=== PATIENT | male | born 1945 | race Caucasian/White ===

== ENCOUNTER 2021-08-03 11:00 | Day surgery (SDC) | payer OTHER ==
[~2021-08-03] VITALS: Ht 175.3 cm; Wt 88.3 kg
[~2021-08-03 11:00] MED LIST: AZIT250 PO; HYDHOMSY PO; LISI20 PO; METF500C PO; METO25ER PO; SIMV80 PO; TRAM50 PO
[2021-08-03] MEDS ORDERED: ATOR40TA PO (11:46)
[2021-08-03] MEDS ORDERED: GABA300 PO (11:46)
[2021-08-03] MEDS ORDERED: ALLO100 PO (11:46)
[2021-08-03] MEDS ORDERED: JARDIANCE25 MG PO (11:47)
--- NOTE | 2021-08-03 11:55 | NUR ---
08/03/21 1155 Deuce Moran CALL MEENA WITHIN REACH. TETRACAINE AT 1146 AND PLEDGETT AT 1150 IN THE LEFT EYE
== END 2021-08-03 13:12 | disposition home or self-care (01) ==
LOC: ORSCSDS 11:00
PROVIDERS: Ophthalmology
PROC: 08RK3JZ Replacement of Left Lens with Synthetic Substitute, Percutaneous Approach (ICD-10-PCS; principal; 2021-08-03 12:30)
DX: H25.13 Age-related nuclear cataract, bilateral (principal); H21.81 Floppy iris syndrome; I10 Essential (primary) hypertension; I25.2 Old myocardial infarction; E11.9 Type 2 diabetes mellitus without complications; H52.209 Unspecified astigmatism, unspecified eye; H52.00 Hypermetropia, unspecified eye; Z79.82 Long term (current) use of aspirin; Z79.84 Long term (current) use of oral hypoglycemic drugs; Z79.899 Other long term (current) drug therapy
CPT/HCPCS: 82947; J2250; J3010; J3301; J7040; V2632

== ENCOUNTER 2021-08-24 11:05 | Day surgery (SDC) | payer OTHER ==
[~2021-08-24] VITALS: Ht 175.3 cm; Wt 85.9 kg
[~2021-08-24 11:05] MED LIST changes: +ALLO100 PO; +ATOR40TA PO; +GABA300 PO; +JARDIANCE25 MG PO
[2021-08-24] MEDS ORDERED: SODBIC650 (11:58)
[2021-08-24] MEDS ORDERED: TAMS.4ER PO (11:58)
[2021-08-24] MEDS ORDERED: METSALMENC (11:59)
[2021-08-24] MEDS ORDERED: Aspir 8181 MG PO (11:59)
[2021-08-24] MEDS ORDERED: PROSTIN VR500 MCG/3 IV (12:01)
[2021-08-24] MEDS ORDERED: ALEVAZOL56.7 G1 (12:02)
--- NOTE | 2021-08-24 12:06 | NUR ---
08/24/21 1206 LASHELL SMILEY AT 1158 PLEDGET AT 1200
== END 2021-08-24 13:23 | disposition home or self-care (01) ==
LOC: ORSCSDS 11:05
PROVIDERS: Ophthalmology
PROC: 08RJ3JZ Replacement of Right Lens with Synthetic Substitute, Percutaneous Approach (ICD-10-PCS; principal; 2021-08-24 12:30)
DX: H25.11 Age-related nuclear cataract, right eye (principal); H21.81 Floppy iris syndrome; I10 Essential (primary) hypertension; I25.2 Old myocardial infarction; I25.10 Atherosclerotic heart disease of native coronary artery without angina pectoris; E11.9 Type 2 diabetes mellitus without complications; Z87.891 Personal history of nicotine dependence; Z79.82 Long term (current) use of aspirin; Z79.84 Long term (current) use of oral hypoglycemic drugs; Z79.899 Other long term (current) drug therapy
CPT/HCPCS: 82947; J2001; J2250; J3010; J3301; J7040; V2632

== ENCOUNTER 2024-05-14 17:21 | Emergency (ER) | payer OTHER ==
[~2024-05-14] VITALS: Ht 175.3 cm; Wt 81.3 kg
[~2024-05-14 17:21] MED LIST changes: +ALEVAZOL56.7 G1; +Aspir 8181 MG PO; +METSALMENC; +PROSTIN VR500 MCG/3 IV; +SODBIC650 PO; +TAMS.4ER PO
[2024-05-14 17:45] LABS: BASOPHILS ABSOLUTE AUTO 0.01 K/mm3 (0.00-0.23); BASOPHILS PERCENT AUTO 0 % (0-2); EOSINOPHILS ABSOLUTE AUTO 0.04 K/mm3 (0.00-0.68); EOSINOPHILS PERCENT AUTO 1 % (0-6); Hemoglobin 13.8 g/dL (13.5-17.5); IMMATURE GRAN ABSOLUTE AUTO 0.01 K/mm3 (0.00-0.10); IMMATURE GRAN PERCENT AUTO 0 % (0-1); LYMPHOCYTES ABSOLUTE AUTO 0.67 K/mm3 (0.84-5.20); LYMPHOCYTES PERCENT AUTO 12 % (21-46); MONOCYTES ABSOLUTE AUTO 0.39 K/mm3 (0.16-1.47); MONOCYTES PERCENT AUTO 7 % (4-13); Mean Corpuscular HGB 33.7 pg (26.0-34.0); Mean Corpuscular HGB Conc 36.3 g/dL (31.5-36.5); Mean Corpuscular Volume 93 fL (80-100); NEUTROPHILS ABSOLUTE AUTO 4.62 K/mm3 (1.96-9.15); NEUTROPHILS PERCENT AUTO 80 % (41-73); Platelet Count 162 K/mm3 (150-400); RDW Coefficient Variation 12.3 % (11.7-14.2); RDW Standard Deviation 41.8 fL (35.1-46.3); Red Blood Cell Count 4.09 M/mm3 (4.30-5.90); White Blood Cell Count 5.74 K/mm3 (4.00-11.30)
[2024-05-14 17:47] LABS: Base Excess Venous -2.1 mmol/L; Bicarbonate Venous 21.5 mmol/L (24.0-30.0); PCO2 Venous 49.1 mmHg (38-42)
[2024-05-14 18:16] LABS: Albumin/Globulin Ratio 0.9 (0.8-1.8); Bilirubin, Total 0.7 mg/dL (0.1-1.0); Bun/Creatinine Ratio 26.3 (12.0-20.0); Calcium, Blood 8.2 mg/dL (8.5-10.1); Creatinine, Blood 1.14 mg/dL (0.60-1.20); Globulin, Blood 3.4 g/dL (2.2-4.0); Potassium, Blood 3.5 mmol/L (3.5-5.5); Total Protein, Blood 6.4 g/dL (6.4-8.2)
[2024-05-14 19:24] LABS: Source, Urine Clean Catch
[2024-05-14 19:26] LABS: Appearance, Urine Clear (Clear); Bilirubin, Urine Neg (Neg); Blood, Urine Neg (Neg); Glucose Qualitative, Urine 4+ (Neg); Ketones, Urine 1+ (Neg); Leukocyte Esterase, Urine Neg (Neg); Nitrite, Urine Neg (Neg); Protein, Urine Neg (Neg); Specific Gravity, Urine 1.015 (1.003-1.022); Urobilinogen, Urine NORM (Normal)
[2024-05-14 19:33] LABS: Color, Urine Pale Yellow (P-Yellow)
[2024-05-14 21:07] VITALS: BP 127/74
== END 2024-05-14 21:06 | disposition home or self-care (01) ==
LOC: ER 17:21
PROVIDERS: Student in an Organized Health Care Education/Training Program
DX: E11.65 Type 2 diabetes mellitus with hyperglycemia (principal); E86.0 Dehydration; I10 Essential (primary) hypertension; I25.2 Old myocardial infarction; Z79.84 Long term (current) use of oral hypoglycemic drugs; Z79.82 Long term (current) use of aspirin; Z79.899 Other long term (current) drug therapy
CPT/HCPCS: 71046; 80053; 81003; 82803; 82947; 85025; 99285-25

== ENCOUNTER 2024-12-16 15:44 | Inpatient (IN) | payer OTHER ==
[~2024-12-16] VITALS: Ht 175.3 cm; Wt 84.9 kg
[2024-12-16] MEDS ORDERED: NS 1,000 ML IV SCH (21:20)
[2024-12-16] MEDS ORDERED: FLU VACC TS2025(65UP)/MF59C/PF 45 MCG/0.5 ML SYRINGE IM SCH (21:20)
[2024-12-16] MEDS ORDERED: Ondansetron HCl 2 MG / ML 2ML Vial IV PRN (21:20)
[2024-12-16 22:34] LABS: BASOPHILS ABSOLUTE AUTO 0.03 K/mm3 (0.00-0.23); BASOPHILS PERCENT AUTO 1 % (0-2); EOSINOPHILS ABSOLUTE AUTO 0.12 K/mm3 (0.00-0.68); EOSINOPHILS PERCENT AUTO 2 % (0-6); Hematocrit 41.9 % (37.0-53.0); Hemoglobin 14.4 g/dL (13.5-17.5); IMMATURE GRAN ABSOLUTE AUTO 0.01 K/mm3 (0.00-0.10); IMMATURE GRAN PERCENT AUTO 0 % (0-1); LYMPHOCYTES ABSOLUTE AUTO 1.04 K/mm3 (0.84-5.20); LYMPHOCYTES PERCENT AUTO 19 % (21-46); MONOCYTES ABSOLUTE AUTO 0.44 K/mm3 (0.16-1.47); MONOCYTES PERCENT AUTO 8 % (4-13); Mean Corpuscular HGB Conc 34.4 g/dL (31.5-36.5); Mean Corpuscular Volume 97 fL (80-100); NEUTROPHILS ABSOLUTE AUTO 3.88 K/mm3 (1.96-9.15); NEUTROPHILS PERCENT AUTO 70 % (41-73); NRBC ABSOLUTE 0.00 K/mm3 (0.00-0.02); NRBC Auto 0.0 /100 WBC (0.0-0.2); Platelet Count 151 K/mm3 (150-400); RDW Coefficient Variation 13.5 % (11.7-14.2); RDW Standard Deviation 48.1 fL (35.1-46.3)
[2024-12-16 23:07] VITALS: BP 109/65
[2024-12-16 23:10] LABS: Anion Gap 7.0 mmol/L (3-11); Blood Urea Nitrogen 31.0 mg/dL (8-24); CO2, Blood 25.0 mmol/L (21-32); Calcium, Blood 9.0 mg/dL (8.5-10.1); Chloride, Blood 112.0 mmol/L (98-108); Creatinine, Blood 1.18 mg/dL (0.60-1.20); Glucose, Blood 114.0 mg/dL (70-99); Potassium, Blood 3.9 mmol/L (3.5-5.5); Sodium, Blood 140.0 mmol/L (136-145)
--- NOTE | 2024-12-17 00:19 | NUR ---
ADMIT NOTE 79 YR OLD MALE ADMITTED TO FLOOR FROM THE ED, ACCOMPANIED BY . DX OF AMB WEAKNESS AND SPINAL CORD EDEMA. REPORTED HX FALLS, CAUSING DAMAGE TO SPINE. A/O X 4. REPORTED LEFT ARM WEAKNESS. ADMITTED TO LIFT ROOM FOR CARE. PT VOICED "CANT WALK". HX HTN, DM, M1 X 5 AND CABG. PT OF [facility], PLANS TO GET MRI OF SPINE, (CERVICAL AND THORACIC) AND TRANSFER TO [facility] WHEN BED AVAILABLE. COOPERATIVE AND POSITIVE AFFECT. ORIENTED TO USE OF CALL LIGHT AND BED CONTROL. CALL LIGHT IN REACH, RAILS UP X 2 AND BED IN LOW POSITION FOR SAFETY. WILL MONITOR
--- NOTE | 2024-12-17 03:10 | NUR ---
CAR GROOMER SUMMARY WAS ADMITTED TO FLOOR EARLIER IN THE SHIFT. VSS. HAS BEEN RESTING QUIETLY WITH FEW INTERRUPTIONS. CALL LIGHT IN REACH, RAILS UP X 2 AND BED IN LOW POSITION. NO NOTED S/S ACUTE DISTRESS. WILL CONT TO MONITOR
[2024-12-17 04:05] VITALS: BP 126/71
[2024-12-17] MEDS ORDERED: Insulin Human Lispro 100 Units/ML 3ML Syringe SC SCH (07:30)
[2024-12-17 07:39] VITALS: BP 123/74
[2024-12-17] MEDS ORDERED: Enoxaparin 40 MG/0.4 ML SYR SC SCH (09:00)
[2024-12-17] MEDS ORDERED: AMLO10 PO (12:50)
[2024-12-17] MEDS ORDERED: Hytrin2 MG PO (12:54)
[2024-12-17] MEDS ORDERED: VITAMIN D325 MC3 PO (12:54)
[2024-12-17] MEDS ORDERED: ATOR40TA PO (12:56)
[2024-12-17 16:00] VITALS: BP 115/73
[2024-12-17 19:31] VITALS: BP 115/73
[2024-12-17 20:05] VITALS: BP 125/71
[2024-12-17 20:34] VITALS: BP 115/73
--- NOTE | 2024-12-17 20:46 | NUR ---
REPORT GIVEN TO KASH WONG RN. AWAITING TRANSPORTATION.
--- NOTE | 2024-12-17 21:46 | NUR ---
MEDICAL TRANSFER ARRIVED AND PICKED UP PT FOR TRANSFER AT 2125 TO BE TRANSFERRED TO [facility]. PT WAS ABLE TO PIVOT TRANSFER WITH ASSISTANCE TO [facility] COM[facility]ORT[facility].
[2024-12-18] MEDS ORDERED: Cholecalciferol 1000 Unit Tablet (=25MCG) PO SCH (09:00)
== END 2024-12-17 21:26 | disposition short-term general hospital (02) | DRG 559 ==
LOC: ER 15:44 → MEDS 21:15
PROVIDERS: Nurse Practitioner Acute Care; ADMIT Internal Medicine
DX: T84.226A Displacement of internal fixation device of vertebrae, initial encounter (principal); G95.19 Other vascular myelopathies; M47.14 Other spondylosis with myelopathy, thoracic region; M47.16 Other spondylosis with myelopathy, lumbar region; G95.89 Other specified diseases of spinal cord; M47.813 Spondylosis without myelopathy or radiculopathy, cervicothoracic region; Y79.2 Prosthetic and other implants, materials and accessory orthopedic devices associated with adverse incidents; E11.9 Type 2 diabetes mellitus without complications; I10 Essential (primary) hypertension; E78.5 Hyperlipidemia, unspecified; M10.9 Gout, unspecified; Z85.46 Personal history of malignant neoplasm of prostate; Z79.84 Long term (current) use of oral hypoglycemic drugs; Z79.82 Long term (current) use of aspirin; I25.2 Old myocardial infarction; Z95.1 Presence of aortocoronary bypass graft
CPT/HCPCS: 36415; 70551; 72141; 72146; 80048; 82947; 85025; 93005; 93010; 97110; 97162; 97530; 99284-25; A9270